=== PATIENT | female | born 1970 | race Caucasian/White ===

== ENCOUNTER → 2021-02-21 | Outpatient (CLI) | payer OTHER ==
[~2021-02-21] MED LIST: BUPR100 PO; Celexa10 MG PO; FISH1000 PO; MULVITMIND PO
== END | disposition home or self-care (01) ==
LOC: LAB 10:01 → LAB SHORT 10:01
DX: N39.0 Urinary tract infection, site not specified (principal)
CPT/HCPCS: 87077; 87086; 87186

== ENCOUNTER 2024-02-15 08:06 | Day surgery (SDC) | payer OTHER ==
[~2024-02-15] VITALS: Ht 165.1 cm; Wt 72.1 kg
[2024-02-15] VITALS (15 sets, daily range): BP systolic 93–162; BP diastolic 54–133
[~2024-02-15 08:06] MED LIST changes: +Lactated Ringer's 1,000 ML IV SCH
[2024-02-15] MEDS ORDERED: propofoL 20 ML IV ONE (09:22)
--- NOTE | 2024-02-15 09:29 | NUR ---
02/15/24 0929 Armand Dawson CONFIRMED AND REVIEWED H&P, MEDCICATIONS, ALLERGIES, MEDICAL HISTORY, RESPIRATORY HISTORY, VITAL SIGNS, 3-LEAD EKG, CONSENTS, AND PHYSICIAN ORDERS. PATIENT CONFIRMS NPO STATUS AND AGREES WITH SCHEDULED PROCEDURE. MONITOR INTACT WITH CONTINUOUS PULSE OXIMETRY, CAPNOGRAPHY, 3-LEAD EKG, INTERMITTENT BP. SUPPLEMENTAL O2 TO BE TITRATED THROUGHOUT PROCEDURE TO MAINTAIN O2 SATURATION ABOVE 90%. PATIENT DETERMINED TO BE ASA APPROPRIATE FOR PROPOFOL SEDATION PRIOR TO START OF PROCEDURE BY DR. PYLE.
--- NOTE | 2024-02-15 10:25 | NUR ---
Patient up to Ambulate independently. Gait steady. Discharge instructions reviewed with patient. Patient verbalizes understanding. Copy given to patient to take home. Patient States Post-Procedure ride home has been arranged. Discharged via wheelchair to private car for ride home. PT TOLERATING PO. REPORTS READY TO GO HOME.
== END 2024-02-15 10:25 | disposition home or self-care (01) ==
LOC: ORSCMMR 08:06 → ORD 09:00 → ORSCMMR 09:00
PROVIDERS: Internal Medicine Gastroenterology
PROC: 0DJD8ZZ Inspection of Lower Intestinal Tract, Via Natural or Artificial Opening Endoscopic (ICD-10-PCS; principal; 2024-02-15 09:00)
DX: Z12.11 Encounter for screening for malignant neoplasm of colon (principal); F32.A Depression, unspecified; Z79.899 Other long term (current) drug therapy
CPT/HCPCS: J2704; J7120